=== PATIENT | female | born 1970 | race Caucasian/White ===

== ENCOUNTER → 2024-01-23 08:08 | Outpatient (REF) | payer BC, SELFPAY ==
[2024-01-23 09:55] LABS: Urine Albumin Negative (Neg - Trace); Urine Bilirubin Negative (Negative); Urine Character Clear (Clear); Urine Color Yellow; Urine Glucose Negative (Negative); Urine Ketone Negative (Negative); Urine Leukocyte 2+ (Negative); Urine Nitrite Negative (Negative); Urine Occult Blood Negative (Negative); Urine Specific Gravity 1.005 (<1.030); Urine Urobilinogen Negative (Neg - 1+)
[2024-01-23 10:34] LABS: Urine Squamous Cell 26-30 /LPF (Few)
[2024-01-23 10:35] LABS: Urine Bacteria Few (Negative); Urine Red Blood Cell 0-2 /HPF (0-2)
[2024-01-23 11:36] LABS: Albumin 4.6 g/dl (3.5-5.0); Blood Urea Nitrogen 15 mg/dl (7-17); Carbon Dioxide 25 mmol/L (22-30); Chloride 104 mmol/L (98-107); Glucose 93 mg/dl (70-99); Potassium 4.6 mmol/L (3.5-5.1); Sodium 137 mmol/L (135-145); eGFR > 60.00
[2024-01-23 11:48] LABS: Microalbumin, Random Urine 1.7 mg/dl (0.6-1.7); Microalbumin/creatinine Ratio 16.4 mg/g
== END ==
LOC: REG 08:08
PROVIDERS: ATTENDING PHYSICIAN Specialist; FAMILY PHYSICIAN Internal Medicine
DX: N18.2 Chronic kidney disease, stage 2 (mild) (principal); I10 Essential (primary) hypertension; Z90.5 Acquired absence of kidney
CPT/HCPCS: 36415; 80069; 81003; 81015; 82043; 82570

== ENCOUNTER → 2024-08-08 17:52 | Outpatient (REF) | payer BC, SELFPAY | LOC: WDC 17:52 | PROVIDERS: ATTENDING PHYSICIAN Obstetrics & Gynecology Gynecology; FAMILY PHYSICIAN Internal Medicine | DX: Z12.31 Encounter for screening mammogram for malignant neoplasm of breast (principal); Z01.419 Encounter for gynecological examination (general) (routine) without abnormal findings | CPT/HCPCS: 77063; 77067 ==

== ENCOUNTER → 2024-10-18 07:07 | Outpatient (REF) | payer BC, SELFPAY ==
[2024-10-18 08:26] LABS: % Basophils 0.7 % (0-2); % Eosinophils 2.1 % (0-6); % Immature Granulocytes 0.2 % (0-0.5); % Lymphocytes 19.7 % (20.5-51.1); % Monocytes 6.1 % (1.7-9.3); % Neutrophils 71.2 % (42.2-75.2); Absolute Basophils 0.1 10^3/uL (0-0.2); Absolute Eosinophils 0.2 10^3/uL (0-0.7); Absolute Lymphocytes 1.7 10^3/uL (1.2-3.4); Absolute Monocytes 0.5 10^3/uL (0.1-0.6); Absolute Neutrophils 6.2 10^3/uL (1.4-6.5); Hematocrit 38.4 % (37.0-47.0); Hemoglobin 13.2 g/dL (12.0-16.0); Mean Corp Hgb Conc. 34.4 g/dL (33.0-37.0); Mean Corpuscular Hgb 30.8 pg (27.0-31.0); Mean Corpuscular Volume 89.7 fL (81.0-99.0); Mean Platelet Volume 8.5 fL (7.4-10.4); Nucleated Red Blood Cells % 0 %; Platelet Count 278 10^3/uL (130-400); Red Blood Cell Count 4.28 10^6/uL (4.20-5.40); Red Cell Dist. Width 12.5 % (11.5-14.5); White Blood Cell Count 8.7 10^3/uL (4.8-10.8)
[2024-10-18 08:46] LABS: ALT (SGPT) 13 U/L (0-35); AST (SGOT) 16 U/L (14-36); Albumin 4.2 g/dl (3.5-5.0); Alkaline Phosphatase 69 U/L (38-126); Blood Urea Nitrogen 19 mg/dl (7-17); Carbon Dioxide 25 mmol/L (22-30); Chloride 107 mmol/L (98-107); Glucose 86 mg/dl (70-99); Potassium 4.4 mmol/L (3.5-5.1); Sodium 140 mmol/L (135-145); Total Bilirubin 0.6 mg/dl (0.2-1.3); Total Cholesterol 216 mg/dl (50-199); Total Protein 6.9 g/dl (6.3-8.2); Triglyceride 94 mg/dl (10-149); Very Low Density Lipoprotein 18 mg/dl (0-30); eGFR > 60.00
[2024-10-18 08:55] LABS: Vitamin D, 25-OH*** 18.6 ng/mL (30-80)
[2024-10-18 09:00] LABS: Urine Albumin Negative (Neg - Trace); Urine Bilirubin Negative (Negative); Urine Character Clear (Clear); Urine Color Yellow; Urine Glucose Negative (Negative); Urine Ketone Negative (Negative); Urine Leukocyte Negative (Negative); Urine Nitrite Negative (Negative); Urine Occult Blood 1+ (Negative); Urine Urobilinogen Negative (Neg - 1+)
[2024-10-18 09:14] LABS: TSH 1.93 uIU/ml (0.47-4.68)
[2024-10-18 09:26] LABS: Urine Squamous Cell >30 /LPF (Few)
[2024-10-18 09:29] LABS: Urine Amorphous Seen; Urine Red Blood Cell 0-2 /HPF (0-2); Urine Urothelial Cell 0-2 /LPF (FEW); Urine White Cell 0-2 /HPF (0-5)
[2024-10-18 10:51] LABS: Glycohemoglobin (HgbA1c) 5.5 % (4.0-5.6)
[2024-10-18 11:01] LABS: Microalbumin, Random Urine < 0.6 mg/dl (0.6-1.7)
[2024-10-18 16:26] LABS: HDL Cholesterol 56 mg/dl; LDL Cholesterol, Calculated 142 mg/dl
[2024-10-20 13:33] LABS: Quantiferon Mitogen minus NIL 9.97 IU/mL; Quantiferon NIL 0.03 IU/mL; Quantiferon Plus TB1 minus NIL 0.26 IU/mL (<=0.34); Quantiferon TB Gold Plus Negative (Negative)
== END ==
LOC: REG 07:07
PROVIDERS: ATTENDING PHYSICIAN Internal Medicine
DX: Z00.00 Encounter for general adult medical examination without abnormal findings (principal); E55.9 Vitamin D deficiency, unspecified; R73.03 Prediabetes; Z11.1 Encounter for screening for respiratory tuberculosis
CPT/HCPCS: 36415; 80053; 80061; 81003; 81015; 82043; 82306; 82570; 83036; 84443; 85025; 86480